=== PATIENT | male | born 1930 | race Caucasian/White ===

== ENCOUNTER → 2016-04-22 | Outpatient (REF) | payer MEDICARE ==
[~2016-04-22] MED LIST: ARIC5TAB PO; ASPI1TAB PO; COLA100C PO; GEN; GENERLAC PO; HYDR200T3 PO; HYDROXYCHLOROQUINE; HYDROXYCHLOROQUINE PO; ICAPCAP PO; LISI20TA3 PO; NORV5TAB PO; OMEP40CA2 PO; PEARCAP PO; PRAV40TA2 PO; PRAV80TA OR; PRAV80TA2 PO; PRED20TA PO; RAMAPRIL PO; TAMS0.4C2 PO; TYLE325T5 PO
== END | disposition home or self-care (01) ==
LOC: M LAB REF 13:25
PROVIDERS: ATTEND Internal Medicine Medical Oncology
DX: C61 Malignant neoplasm of prostate (principal)

== ENCOUNTER → 2016-04-28 | Outpatient (REF) | payer MEDICARE ==
[2016-04-28 13:46] LABS: REASON FOR REVIEW COMPREHENSIVE REVIEW
[2016-04-28 14:07] LABS: RETIC HEMOGLOBIN CONTENT CHr 32.8 PG (24-36); RETICULOCYTE ABSOLUTE ADVIA212 122 x10(9)/L (17-77)
== END | disposition home or self-care (01) ==
LOC: M LAB REF 12:29
PROVIDERS: ATTEND Internal Medicine Medical Oncology
DX: C61 Malignant neoplasm of prostate (principal)
CPT/HCPCS: 85046; G0463

== ENCOUNTER → 2016-04-28 | Outpatient (CLI) | payer MEDICARE | LOC: M ONCR 13:38 | PROVIDERS: ATTEND Radiology Radiation Oncology | DX: C61 Malignant neoplasm of prostate (principal); C79.51 Secondary malignant neoplasm of bone ==

== ENCOUNTER → 2016-04-30 | Outpatient (REF) | payer MEDICARE ==
[2016-04-30 18:47] LABS: PERCENT SATURATION 33.7 % (19.7-37.4)
== END | disposition home or self-care (01) ==
LOC: M LAB REF 16:57
PROVIDERS: ATTEND Internal Medicine Nephrology
DX: D50.9 Iron deficiency anemia, unspecified (principal)

== ENCOUNTER → 2016-05-04 | Outpatient (RCR) | payer MEDICARE ==
--- NOTE | 2016-05-04 11:50 | RADONC ---
RADIATION ONCOLOGY SIMULATION NOTE DATE: 05/04/2016 Mr. Cano was taken to the CT scan for CT simulation of his right hip and the spinal dobson. CT was accomplished without difficulty or discomfort. Radiation treatment planning is underway and radiation treatments will begin subsequently. An immobilization device was created and will be used throughout the course of treatment. I was physically present throughout the course of CT simulation.
== END ==
LOC: M ONCR 03-12 09:03
PROVIDERS: ATTEND Radiology Radiation Oncology
DX: C79.51 Secondary malignant neoplasm of bone (principal); C61 Malignant neoplasm of prostate

== ENCOUNTER → 2016-05-04 | Outpatient (CLI) | payer MEDICARE | LOC: M RAD 08:26 | PROVIDERS: ATTEND Radiology Radiation Oncology | DX: C61 Malignant neoplasm of prostate (principal); C79.51 Secondary malignant neoplasm of bone ==

== ENCOUNTER 2016-05-05 10:58 | Outpatient (RCR) | payer MEDICARE ==
--- NOTE | 2016-05-18 11:36 | RADONC ---
RADIATION ONCOLOGY PROGRESS NOTE DATE: 05/17/2016 CHART NUMBER: [id number] Mr. Cano is presently at a dose of 1500 centigrade to his spine as well as his right hip. He is tolerating treatments quite well with no complaints related to his radiation therapy. The patient's review of systems is positive for some continued back and hip pain as well as anorexia. It is otherwise largely noncontributory. REVIEW OF SYSTEMS: The patient's review of systems is noncontributory. Denies nausea, vomiting, fevers, chills, night sweats, diplopia, headaches, anxiety or depression, anorexia, weight loss, visual disturbances, chest pain, urinary or bowel difficulties, bone pain, or neurological problems. PHYSICAL EXAMINATION: The patient's skin in his is treated field is in excellent condition with no evidence of moist or dry desquamation. The remainder of his physical exam remains unchanged. Mr. Cano is tolerating treatments quite well and radiation will continue as scheduled.
--- NOTE | 2016-05-27 08:21 | RADONC ---
RADIATION ONCOLOGY TREATMENT SUMMARY CHART NUMBER: [id number] DATE: 05/24/2016 DIAGNOSIS: Prostate cancer. STAGE: IV, metastatic. ECOG PERFORMANCE STATUS: 2. TREATMENT SUMMARY: Mr. 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 We treated the patient to his thoracic and lumbar spine from the levels of T5-L2 for a total dose of 3000 cGy delivered in 10 fractions of 300 cGy each over 13 elapsed days from 05/11/2016 through 05/24/2016. The patient's spine was treated on a linear accelerator utilizing an 18 MV photon beam via single posterior field prescribed to a depth of 7 cm. In addition, we treated the patient to his right hip for a dose of 3000 cGy delivered in 10 fractions of 300 cGy each over 13 elapsed days from 05/11/2016 through 05/24/2016. The patient's right hip was treated on a linear accelerator utilizing a 18 MV photon beam via anterior posterior parallel opposed dobson. Mr. Cano tolerated his treatments quite well and was able to complete therapy as prescribed without interruption. He had no difficulties related to his radiation therapy. I have scheduled the patient to see me again in 1 month for further followup. He will also continue to be followed by his other physicians as well. Thank you for allowing us to participate in the care of this very pleasant gentleman. If I could be of any further assistance or provide you with any information, please free to contact me anytime. cc: MD Chele Richardson Jr, MD
== END 2016-06-01 ==
LOC: M ONCR 10:58
PROVIDERS: ATTEND Radiology Radiation Oncology
DX: C79.51 Secondary malignant neoplasm of bone (principal); C61 Malignant neoplasm of prostate

== ENCOUNTER → 2016-05-13 | Outpatient (REF) | payer MEDICARE | LOC: M SMT 13:01 | PROVIDERS: ATTEND Urology | DX: R33.9 Retention of urine, unspecified (principal) ==

== ENCOUNTER → 2016-06-04 | Outpatient (REF) | payer MEDICARE | LOC: M SMT 12:55 | PROVIDERS: ATTEND Urology | DX: N39.0 Urinary tract infection, site not specified (principal) ==

== ENCOUNTER → 2016-06-17 | Outpatient (REF) | payer MEDICARE | LOC: M LAB REF 12:46 | PROVIDERS: ATTEND Internal Medicine Medical Oncology | DX: C61 Malignant neoplasm of prostate (principal) ==

== ENCOUNTER → 2016-06-23 | Outpatient (CLI) | payer MEDICARE ==
--- NOTE | 2016-06-24 10:06 | RADONC ---
RADIATION ONCOLOGY FOLLOWUP NOTE DATE: 06/23/2016 CHART NUMBER: [id number]. DIAGNOSIS: Prostate cancer. STAGE: IV, metastatic. ECOG PERFORMANCE STATUS: 3. FOLLOWUP NOTE: Mr. Cano is a very pleasant, 86-year-old white male with the diagnosis of widely metastatic poorly differentiated adenocarcinoma of prostate who is presenting to us today for routine followup visit 1 month post completion of palliative radiation therapy to his right hip and spine. The patient presents today reporting that largely all his pain is resolved. He is having no pain at the present time and only randomly has some pain at various joints, which he to arthritis. The patient's review of systems is positive for his dementia as well as physical limitations secondary to his old age, but is otherwise largely noncontributory. He denies nausea, vomiting, fevers, chills, night sweats, diplopia, headaches, anxiety or depression, anorexia, weight loss, visual disturbances, chest pain, urinary or bowel difficulties or neurological problems. PHYSICAL EXAMINATION: The patient is a well-developed, well-nourished male in no acute distress. HEENT exam is normocephalic, atraumatic. Extraocular movements are intact. There is no palpable cervical, supraclavicular, infraclavicular, axillary, or inguinal lymphadenopathy present. Lungs are clear to auscultation and percussion. Heart has a regular rate and rhythm. Abdomen is benign with no hepatosplenomegaly, masses, or tenderness. Rectal examination reveals a normal anal sphincter tone. Skeletal examination reveals no tenderness to pressure or percussion of the bony skeleton. Extremities reveal no clubbing, cyanosis, or edema. Neurologic exam is grossly intact, as is the remainder of the physical examination. ASSESSMENT: The patient is clinically doing fairly well at this point. I have scheduled him to see me again in 3 months for further followup. In the meantime, he will continue his close followup visit with his medical oncologist. In addition, I have instructed the patient and his to contact me should any new pain develop or if he wishes me to address any issues or discomfort whatsoever. cc: MD Chele Richardson Jr, MD
== END ==
LOC: M ONCR 14:26
PROVIDERS: ATTEND Radiology Radiation Oncology
DX: C61 Malignant neoplasm of prostate (principal); C79.51 Secondary malignant neoplasm of bone

== ENCOUNTER → 2016-07-12 | Outpatient (REF) | payer MEDICARE ==
[~2016-07-12] MED LIST changes: -COLA100C PO; +COLA100C3 PO
== END ==
LOC: M LAB REF 12:36
PROVIDERS: ATTEND Internal Medicine Medical Oncology
DX: C61 Malignant neoplasm of prostate (principal)

== ENCOUNTER → 2016-07-23 | Outpatient (CLI) | payer MEDICARE ==
[2016-07-23 13:46] LABS: ALBUMIN 2.9 GM/DL (3.2-5.2); ALBUMIN/GLOBULIN RATIO 0.78 (1.00-1.93); BILIRUBIN,DIRECT 0.2 MG/DL (0.0-0.2); BILIRUBIN,TOTAL 0.5 MG/DL (0.2-1.0); CALCIUM LEVEL 8.4 MG/DL (8.8-10.2); CREATININE FOR GFR 1.41 MG/DL (0.70-1.30); POTASSIUM SERUM 4.3 MEQ/L (3.5-5.1); TOTAL PROTEIN 6.6 GM/DL (6.4-8.2)
== END ==
LOC: M WUC 10:15
PROVIDERS: ATTEND Internal Medicine Interventional Cardiology
DX: I35.0 Nonrheumatic aortic (valve) stenosis (principal)